=== PATIENT | female | born 1990 | race Two or more races ===

== ENCOUNTER 2019-07-03 20:12 | Inpatient (IN) | payer SELFPAY ==
[~2019-07-03] VITALS: Ht 167.6 cm; Wt 83.9 kg
[2019-07-03 20:13] VITALS: BP 101/60
[2019-07-03] MEDS ORDERED: fentaNYL 0.05 MG/ML VIAL IVP ONE (21:10)
[2019-07-03 21:54] LABS: BASOPHILS # (AUTO) 0.1 K/uL (0.00-0.22); BASOPHILS % (AUTO) 0.4 % (0.0-2.0); EOSINOPHILS # (AUTO) 0.2 K/uL (0-0.4); EOSINOPHILS % (AUTO) 1.4 % (0.0-4.0); HEMATOCRIT 30.4 % (36-48); HEMOGLOBIN 9.7 g/dL (12.0-16.0); LYMPHOCYTES # (AUTO) 1.4 K/uL (2.5-16.5); LYMPHOCYTES % (AUTO) 8.2 % (20.5-51.1); MEAN CORPUSCULAR HEMOGLOBIN 30 pg (27-31); MEAN CORPUSCULAR HGB CONC 32 g/dL (33-37); MEAN CORPUSCULAR VOLUME 92.6 fL (80-94); MONOCYTES % (AUTO) 6.4 % (1.7-9.3); NEUTROPHILS # (AUTO) 13.7 K/uL (1.8-7.7); NEUTROPHILS % (AUTO) 83.6 % (42.2-75.2); PLATELET COUNT (AUTO) 181 K/uL (140-450); RED BLOOD CELL COUNT(AUTO) 3.28 MIL/uL (4.20-5.40); RED CELL DISTRIBUTION WIDTH 12.3 % (11.6-13.7); WHITE BLOOD COUNT (AUTO) 16.4 K/uL (4.8-10.8)
[2019-07-03 21:55] LABS: APPEARANCE,URINE CLEAR (CLEAR); BILIRUBIN,URINE NEGATIVE (NEGATIVE); BLOOD, URINE 3+ (NEGATIVE); COLOR,URINE YELLOW (YELLOW); LEUKOCYTE ESTERASE ,URINE 1+ (NEGATIVE); NITRITE, URINE NEGATIVE (NEGATIVE); PH,URINE 6.5 (5.0-9.0); UGLUCOSE NEGATIVE (NEGATIVE)
[2019-07-03] MEDS ORDERED: fentaNYL 0.05 MG/ML VIAL ONE (21:56)
[2019-07-03 22:05] LABS: BARBITURATE, URINE NEG. ng/ml (NEG <=200); BENZODIAZEPINE, URINE NEG. ng/mL (NEG <=200); CANNABINOID, URINE NEG. ng/mL (NEG <=50); COCAINE, URINE NEG. ng/mL (NEG <=300); OPIATE, URINE POS. ng/mL (NEG <=2000); PHENCYCLIDINE SCREEN,URINE NEG. ng/mL (NEG <=25)
[2019-07-03 22:10] LABS: RBC,URINE 11-20 (MOD) /HPF (0-5); WBC,URINE 0-5 /HPF (0-5)
[2019-07-03] MEDS ORDERED: AMPICILLIN 2,000 MG VIAL ONE (22:30)
[2019-07-03] MEDS ORDERED: MORPHINE SULFATE 4 MG/ML SYR IVP PRN (22:30)
[2019-07-03] MEDS ORDERED: ONDANSETRON 4 MG/2 ML VIAL IVP PRN (22:45)
[2019-07-03] MEDS ORDERED: ONDANSETRON 4 MG/2 ML VIAL ONE (22:48)
[2019-07-03] MEDS ORDERED: OXYTOCIN 20 UNITS in LACTATED RINGERS 1,000 ML IV SCH (23:00)
[2019-07-03] MEDS ORDERED: AMPICILLIN 2,000 MG in NACL 0.9% 100 ML IV SCH (23:00)
[2019-07-03 23:17] VITALS: BP 113/74
[2019-07-04] MEDS ORDERED: OXYTOCIN 20 UNITS/LR PREMIX 1,000 ML IV ONE (00:08)
[2019-07-04] MEDS ORDERED: METHYLERGONOVINE 0.2 MG/ML AMP IM PRN (00:25)
[2019-07-04] MEDS ORDERED: IBUPROFEN 600 MG TAB PO PRN (00:25)
[2019-07-04] MEDS ORDERED: BENZOCAINE/MENTHOL 20%-0.5% 60 GM CAN TP PRN (00:25)
[2019-07-04] MEDS ORDERED: IBUPROFEN 800 MG TAB PO PRN (00:25)
[2019-07-04] MEDS ORDERED: METHYLERGONOVINE 0.2 MG TAB PO PRN (00:25)
[2019-07-04] MEDS ORDERED: MEASLES, MUMPS, AND RUBELLA 1 VIAL SQVAC PRN (00:25)
[2019-07-04] MEDS ORDERED: OXYTOCIN 10 UNITS/ML VIAL IM PRN (00:25)
[2019-07-04] MEDS ORDERED: PREN-380 PO (03:02)
[2019-07-04] MEDS ORDERED: VITA1TAB44 PO (03:02)
[2019-07-04] MEDS ORDERED: FERR-252 PO (03:02)
[2019-07-04] MEDS ORDERED: AMPICILLIN 2,000 MG VIAL ONE ×2 (04:30→10:08)
[2019-07-04] MEDS: AMPICILLIN 2,000 MG in NACL 0.9% 100 ML IV SCH ×2 (04:36→10:34)
[2019-07-04] MEDS: LACTATED RINGERS 1,000 ML IV SCH (11:00)
[2019-07-04 14:24] LABS: HEMATOCRIT 29.2 % (36-48); HEMOGLOBIN 9.4 g/dL (12.0-16.0)
[2019-07-04] MEDS ORDERED: LORazepam 0.5 MG TAB PO SCH (16:30)
[2019-07-04] MEDS: LORazepam 0.5 MG TAB PO PRN ×2 (16:34→22:41)
[2019-07-04] MEDS: cloNIDine 0.1 MG TAB PO SCH (20:57)
[2019-07-04] MEDS ORDERED: DOCUSATE SOD/SENNA 50/8.6 MG 1 TAB PO SCH (21:00)
[2019-07-04] MEDS ORDERED: PROMETHAZINE 25 MG/ML VIAL IVP PRN (21:30)
[2019-07-04] MEDS ORDERED: ONDANSETRON 4 MG/2 ML VIAL IVP PRN (21:30)
[2019-07-04] MEDS ORDERED: PROMETHAZINE 25 MG/ML VIAL ONE (21:34)
[2019-07-04 22:17] VITALS: BP 106/59
[2019-07-05] MEDS ORDERED: ONDANSETRON 4 MG/2 ML VIAL ONE (00:02)
[2019-07-05] MEDS: LACTATED RINGERS 1,000 ML IV SCH (02:14)
[2019-07-05] MEDS ORDERED: PROMETHAZINE 25 MG/ML VIAL ONE (06:44)
[2019-07-05 07:02] LABS: BASOPHILS % (AUTO) 0.2 % (0.0-2.0); HEMATOCRIT 30.1 % (36-48); HEMOGLOBIN 9.8 g/dL (12.0-16.0); LYMPHOCYTES # (AUTO) 1.3 K/uL (2.5-16.5); LYMPHOCYTES % (AUTO) 7.8 % (20.5-51.1); MEAN CORPUSCULAR HEMOGLOBIN 30 pg (27-31); MEAN CORPUSCULAR HGB CONC 33 g/dL (33-37); MEAN CORPUSCULAR VOLUME 92.1 fL (80-94); MONOCYTES # (AUTO) 0.5 K/uL (0.8-1.0); MONOCYTES % (AUTO) 3.2 % (1.7-9.3); NEUTROPHILS # (AUTO) 14.8 K/uL (1.8-7.7); NEUTROPHILS % (AUTO) 88.8 % (42.2-75.2); PLATELET COUNT (AUTO) 202 K/uL (140-450); RED BLOOD CELL COUNT(AUTO) 3.26 MIL/uL (4.20-5.40); RED CELL DISTRIBUTION WIDTH 12.4 % (11.6-13.7); WHITE BLOOD COUNT (AUTO) 16.7 K/uL (4.8-10.8)
[2019-07-05] MEDS ORDERED: METOCLOPRAMIDE 10 MG/2 ML INJ VIAL ONE (07:52)
[2019-07-05] MEDS ORDERED: METOCLOPRAMIDE 10 MG/2 ML INJ VIAL IVP SCH (08:00)
[2019-07-05] MEDS ORDERED: VIT-B COMP/VIT-C/FOLIC ACID 1 TAB PO SCH (09:00)
[2019-07-05] MEDS: cloNIDine 0.1 MG TAB PO SCH (09:00)
== END 2019-07-05 13:05 | disposition home or self-care (01) | DRG 779 ==
LOC: MED 20:12 → MLD 20:20 → OBSVTOIN 21:33
PROVIDERS: ADMIT Obstetrics & Gynecology; ATTEND Obstetrics & Gynecology
PROC: 10E0XZZ Delivery of Products of Conception, External Approach (ICD-10-PCS; principal; 2019-07-04)
DX: O03.9 Complete or unspecified spontaneous abortion without complication (principal); O99.322 Drug use complicating pregnancy, second trimester; F11.20 Opioid dependence, uncomplicated; O42.912 Preterm premature rupture of membranes, unspecified as to length of time between rupture and onset of labor, second trimester; Z3A.22 22 weeks gestation of pregnancy
CPT/HCPCS: 36415; 76805; 80305; 81001; 85018; 85025; 86886; 86900; 86901; 87086; 99281; G0378; J0290; J2270; J2405; J2550; J2590; J2765; J3010; J7120; Q0092